=== PATIENT | male | born 1975 | race Caucasian/White ===

== ENCOUNTER 2021-08-31 06:02 | Emergency (ER) | payer OTHER ==
[2021-08-31 06:18] VITALS: BMI 31.4
[2021-08-31] MEDS ORDERED: chlordiazePOXIDE HCL 25 MG CAPSULE PO ONE (06:30)
[2021-08-31] MEDS ORDERED: FOLIC ACID INJECTION - 1 MG, THIAMINE HCL 100 MG, MULTIVIT INJECTION ADULT 10 ML in SOD... IVPB ONE (06:30)
[2021-08-31 07:36] LABS: BASO % 2.4 % (0-2.0); EOS % 6.1 % (0-4.5); HEMATOCRIT 41.5 % (35.4-49); HEMOGLOBIN 14.2 GM/dL (11.7-16.9); LYMPH % 40.9 % (8-40); MCH 35.1 pg (25.7-33.7); MCHC 34.3 g/dl (32.0-35.9); MEAN CELL VOLUME 102.5 fl (80-96); MONO % 10.9 % (3.8-10.2); NEUT % 39.7 % (42.8-82.8); PLATELET COUNT 106 10^3/uL (134-434); RBC 4.05 M/mm3 (4.00-5.60); RDW 13.3 % (11.9-15.9); WHITE BLOOD COUNT 3.3 K/mm3 (4.0-10.0)
[2021-08-31 08:06] LABS: ALBUMIN 4.1 g/dl (3.4-5.0); CALCIUM 8.4 mg/dL (8.5-10.1)
[2021-08-31 08:09] LABS: CREATININE 0.7 mg/dL (0.55-1.3)
[2021-08-31 08:11] LABS: BILIRUBIN,TOTAL 0.4 mg/dL (0.2-1)
[2021-08-31 09:51] VITALS: BP 105/80; PULSE 87; TEMP 98
== END 2021-08-31 09:50 | disposition home or self-care (01) ==
LOC: JER 06:02
PROC: 3E033GC Introduction of Other Therapeutic Substance into Peripheral Vein, Percutaneous Approach (ICD-10-PCS; principal; 2021-08-31)
DX: F10.10 Alcohol abuse, uncomplicated (principal)
CPT/HCPCS: 36415; 80053; 83690; 85025; 99284-25